=== PATIENT | female | born 1935 | race Two or more races ===

== ENCOUNTER 2020-07-17 11:10 | Inpatient (IN) | payer MEDICARE ==
[2020-07-17] MEDS ORDERED: NORMAL SALINE 1000 ML 1,000 ML IV ONE ×3 (11:58→13:29)
--- NOTE | 2020-07-17 12:52 | RADIOLOGY REPORT (SQ) ---
EXAM DESCRIPTION: CHEST SINGLE VIEW IMAGES COMPLETED DATE/TIME: 07/17/2020 12:45 pm REASON FOR STUDY: ams COMPARISON: None. EXAM PARAMETERS: NUMBER OF VIEWS: One view. TECHNIQUE: Single frontal radiographic view of the chest acquired. RADIATION DOSE: NA LIMITATIONS: None. FINDINGS: LUNGS AND PLEURA: No opacities, masses or pneumothorax. No pleural effusion. MEDIASTINUM AND HILAR STRUCTURES: No masses. Contour normal. HEART AND VASCULAR STRUCTURES: Heart normal in size. Normal vasculature. BONES: No acute findings. HARDWARE: None in the chest. OTHER: No other significant finding. IMPRESSION: NO ACUTE RADIOGRAPHIC FINDING IN THE CHEST. TECHNICAL DOCUMENTATION: JOB ID: [id number] 2010 [employer] system- All Rights Reserved Reading location - IP/workstation name: [email or web address]
[2020-07-17 12:56] LABS: APPEARANCE,URINE SLIGHTLY-CLOUDY; BILIRUBIN,URINE NEGATIVE (NEGATIVE); COLOR,URINE YELLOW; GLUCOSE, URINE NEGATIVE (NEGATIVE); KETONES,URINE NEGATIVE (NEGATIVE); LEUKOCYTE ESTERASE,URINE LARGE (NEGATIVE); NITRITE,URINE NEGATIVE (NEGATIVE); PROTEIN,URINE NEGATIVE (NEGATIVE); URINE SPECIFIC GRAVITY 1.017; UROBILINOGEN,URINE NEGATIVE mg/dL (<2.0)
[2020-07-17 13:01] LABS: ABSOLUTE MONOCYTES (AUTO) 0.6 10^3/uL (0.1-1.4); ABSOLUTE NEUT (AUTO) 10.9 10^3/uL (1.7-8.2); BASOPHILS % (AUTO) 0.2 % (0-2); EOSINOPHILS % (AUTO) 0.2 % (0-6); HEMATOCRIT 33.2 % (36.0-47.0); HEMOGLOBIN 11.2 g/dL (12.0-15.5); MEAN CORPUSCULAR HEMOGLOBIN 30.7 pg (27.0-33.4); MEAN CORPUSCULAR HGB CONC 33.7 g/dL (32.0-36.0); MEAN CORPUSCULAR VOLUME 91 fl (80-97); MONOCYTES % (AUTO) 4.9 % (3-13); PLATELET COUNT 228 10^3/uL (150-450); RED BLOOD COUNT 3.65 10^6/uL (3.72-5.28); RED CELL DISTRIBUTION WIDTH 16.2 % (11.5-14.0); SEGMENTED NEUTROPHILS % (AUTO) 86.7 % (42-78); TOTAL CELLS COUNTED % (AUTO) 100 %; WHITE BLOOD COUNT 12.6 10^3/uL (4.0-10.5)
[2020-07-17 13:19] LABS: ALBUMIN 2.8 g/dL (3.5-5.0); ALKALINE PHOSPHATASE 94 U/L (38-126); ASPARTATE AMINO TRANSFERASE 21 U/L (14-36); BILIRUBIN,DIRECT 0.3 mg/dL (0.0-0.4); BILIRUBIN,TOTAL 0.6 mg/dL (0.2-1.3); CALCIUM 10.9 mg/dL (8.4-10.2); CHLORIDE 123 mmol/L (98-107); CREATINE KINASE 157 U/L (30-135); GLUCOSE 186 mg/dL (75-110); POTASSIUM 4.6 mmol/L (3.6-5.0); TOTAL PROTEIN 5.6 g/dL (6.3-8.2)
[2020-07-17 13:21] LABS: ARTERIAL BLOOD BASE EXCESS -8.7 mmol/L; ARTERIAL BLOOD H2CO3 0.69 mmol/L (1.05-1.35); ARTERIAL BLOOD HCO3 14.2 mmol/L (20-24); ARTERIAL BLOOD O2 SATURATION 99.2 % (94-98); ARTERIAL BLOOD PCO2 22.8 mmHg (35-45); ARTERIAL BLOOD PH 7.41 (7.35-7.45); ARTERIAL BLOOD PO2 171.1 mmHg (80-100); ARTERIAL BLOOD TOTAL CO2 14.9 mmol/L (21-25)
--- NOTE | 2020-07-17 13:23 | ER Document Report ---
ED General - General Stated Complaint: BLOOD PRESSURE ISSUES Time Seen by Provider: 07/17/20 11:29 Primary Care Provider: MARCELINO SOLIS MD [Primary Care Provider] - Follow up as needed Mode of Arrival: Medic Information source: Emergency Med Personnel - [facility] Notes: Patient is brought in by EMS from an extended care facility. Patient was found with low blood pressure. Patient has a history apparently of acute renal failure. The low blood pressure was apparently noticed this morning. No known recent fevers. Patient does have a known diagnosis of a recent lumbar spine fr acture. No other known recent trauma. No known vomiting. Patient is currently nonverbal not able to contribute to history. History is obtained mainly from records as well as emergency medicine personnel. Patient has not had a recent cough or congestion. Paramedics were called primarily because of the low blood pressure according to the report. Past Medical History - General Information source: Emergency Med Personnel - Social History Smoking Status: Never Smoker - No known history of tobacco use Frequency of alcohol use: None Drug Abuse: None Family History: Reviewed & Not Pertinent Review of Systems - Review of Systems -: Yes ROS unobtainable due to patient's medical condition - Cannot obtain review of symptoms due to altered mental status Physical Exam - Vital signs Vitals: Temp 94.1 F L 07/17/20 11:11 Interpretation: Hypotensive, Other - Hypothermic - General General appearance: Lethargic In distress: Moderate - HEENT Head: Normocephalic, Atraumatic Eyes: Normal Mouth/Lips: Normal Mucous membranes: Dry - Respiratory Respiratory status: No respiratory distress Chest status: Nontender Breath sounds: Decreased air movement Chest palpation: Normal - Cardiovascular Rhythm: Regular Heart sounds: Normal auscultation Murmur: No - Abdominal Inspection: Normal Distension: No distension Bowel sounds: Normal Tenderness: Nontender Organomegaly: No organomegaly - Back Back: Normal, Nontender - Extremities General upper extremity: Normal inspection, Nontender, Normal color, Normal temperature General lower extremity: Normal inspection, Nontender, Normal color, Normal temperature - Neurological Cognition: Confused Orientation: Disoriented to person, Disoriented to place, Disoriented to time Luis Coma Scale Eye Opening: Spontaneous Luis Coma Scale Verbal: Confused [place] Coma Scale Motor: Obeys Commands [place] Coma Scale Total: 14 - Psychological Associated symptoms: Confused, Psychomotor depression - Skin Skin Temperature: Warm Skin Moisture: Dry Skin Color: Normal Course - Re-evaluation Re-evalutation: 07/17/20 13:38 Patient presents with altered mental status and low blood pressure from an outside facility. She obviously appears to be septic with hypothermia elevated white blood cell count and low blood pressure. Her blood pressure has responded well so far to fluids. She is currently on her fourth liter. She also has an elevated lactate and acute renal failure. She will be treated with antibiotics for the urinary tract infection and apparent sepsis. She does have a mildly elevated troponin as well. This appears to be some leak of troponin due to some demand ischemia. Patient is a DO NOT RESUSCITATE. I have updated the family. At this time I have spoke with the hospitalist will see the patient in cons ultation. - Vital Signs Vital signs: Temp Pulse Resp BP Pulse Ox 93.9 F L 24 H 84/62 L 100 07/17/20 12:33 07/17/20 12:33 07/17/20 12:33 07/17/20 12:33 - Laboratory Result Diagrams: 07/17/20 12:32 07/17/20 12:32 Lab Results Review: Critical Lab Results Reviewed Laboratory results interpreted by me: 07/17/20 07/17/20 07/17/20 12:05 12:32 12:32 WBC 12.6 H RBC 3.65 L Hgb 11.2 L Hct 33.2 L RDW 16.2 H Lymph % (Auto) 8.0 L Absolute Neuts (auto) 10.9 H Seg Neutrophils % 86.7 H Carbonic Acid ABG pCO2 ABG pO2 ABG HCO3 ABG Total CO2 ABG O2 Saturation Sodium 152.1 H Chloride 123 H Carbon Dioxide 9 L* D BUN 171 H Creatinine 5.60 H Est GFR ( Amer) 9 L Est GFR (MDRD) Non-Af 7 L Glucose 186 H Lactic Acid Calcium 10.9 H Creatine Kinase 157 H Total Protein 5.6 L Albumin 2.8 L Ur Leukocyte Esterase LARGE H 07/17/20 07/17/20 12:48 13:00 WBC RBC Hgb Hct RDW Lymph % (Auto) Absolute Neuts (auto) Seg Neutrophils % Carbonic Acid 0.69 L ABG pCO2 22.8 L ABG pO2 171.1 H ABG HCO3 14.2 L ABG Total CO2 14.9 L ABG O2 Saturation 99.2 H Sodium Chloride Carbon Dioxide BUN Creatinine Est GFR ( Amer) Est GFR (MDRD) Non-Af Glucose Lactic Acid 4.0 H Calcium Creatine Kinase Total Protein Albumin Ur Leukocyte Esterase - Diagnostic Test Radiology Studies Status: Radiology Report Reviewed Critical Care Note - Critical Care Note Total time excluding time spent on procedures (mins): 55 Comments: Approximate 55 minutes of critical care time were spent on this patient with sepsis, hypotension, urinary tract infection, altered mental status, and acute renal failure. Discharge - Discharge Clinical Impression: Sepsis Qualifiers: Sepsis type: sepsis due to unspecified organism Sepsis acute organ dysfunction status: with acute organ dysfunction Severe sepsis acute organ dysfunction type: acute renal failure Acute renal failure type: unspecified Severe sepsis shock status: with septic shock Qualified Code(s): A41.9 - Sepsis, unspecified organism; R65.21 - Severe sepsis with septic shock; N17.9 - Acute kidney failure, unspecified Condition: Critical Disposition: ADMITTED INPATIENT Admitting Provider: Ke (Hospitalist) Unit Admitted: IMCU Referrals: MARCELINO SOLIS MD [Primary Care Provider] - Follow up as needed
[2020-07-17 13:27] LABS: BLOOD UREA NITROGEN 171 mg/dL (7-20)
[2020-07-17 13:28] LABS: CARBON DIOXIDE 9 mmol/L (22-30)
[2020-07-17 13:29] LABS: ARTERIAL BLOOD FIO2 2L
[2020-07-17] MEDS ORDERED: CEFEPIME 2 GM/D5W RTU 2 GM/50 ML RTUPB IV ONE (13:29)
[2020-07-17 13:31] LABS: CREATINE KINASE MB 9.32 ng/mL (<4.55)
[2020-07-17 13:38] LABS: TROPONIN I 0.223 ng/mL
[2020-07-17 13:49] LABS: ANION GAP 20 (5-19)
[2020-07-17] MEDS ORDERED: PROMETHAZINE HCL INJ 25 MG/1 ML VIAL IV PRN (14:23)
[2020-07-17] MEDS ORDERED: MORPHINE SULFATE 10 MG/ML INJ IV PRN (14:26)
[2020-07-17] MEDS ORDERED: HALOPERIDOL LACTATE INJ 5 MG/1 ML VIAL IV PRN (14:26)
--- NOTE | 2020-07-17 14:31 | ADVANCED CARE ---
Attendance: : Norberto Madden Son: Herminio Madden [id number]: Melissa Madden Resuscitation Status: Comfort Measures Only Discussion: We discussed that patient is in septic shock with renal failure and evidence of cardiac strain. Family states that she has had a poor quality of life for the last 1-2 months and has been declining gradually. She has repeatedly told them that she does not want "extraordinary measures" to keep her alive and wants to maintain a high quality of life. Ever since going to SNF, she has become bedbound and dementia has progressed. Family is ready to transition to comfort measures at this time. They are coming in to be with her and understand that her time left is very limited. Time Spent: >30 minutes
[2020-07-17] MEDS: LORAZEPAM INJ 2 MG/1 ML VIAL IV PRN (16:00)
--- NOTE | 2020-07-17 17:32 | PDOC H&P ---
History of Present Illness Admission Date/PCP: 07/17/20 14:08 MARCELINO SOLIS MD Patient complains of: abnormal labs History of Present Illness: ERYN VILLARREAL is an 84 year old female with PMH of advanced dementia, HTN, HLD, CAD, CKD stage 3, generalized weakness and recent onset of falls who presents from [facility] due to elevated BUN/Cr found on routine labs today. In the ED, she was altered and unable to provide history. VS showed hypothermia, hypotension, tachypnea. Labs notable for leukocytosis, MIRTA on CKD with metabolic acidosis, lactic acidosis, and elevated troponin. ABG shows respiratory alkalosis. She had a large, firm bowel movement in the ED for which she had to be manually disimpacted. She is currently somnolent and minimally responsive. I spoke with her nurse at [place], who tells me that Mrs. Villarreal has been mostly bed-bound. She requires 2 person-assist with everything; she is not ambulatory. She has to be fed meals and has been mostly refusing to eat/drink during her stay there (07/11 to 07/17). She has been eating maximum 25% of her meals. She has been having labs checked regularly due to progressively worsening renal function. She had routine labs checked yesterday; they got the results today, showing much worse renal failure, so the decision was made to transfer her to [facility]. Goals of care and code status discussed with family via phone, and they wish to pursue comfort care measures only. Past Medical History Cardiac Medical History: Reports: Coronary Artery Disease, Hyperlipidema, Hypertension EENT Medical History: Reports: Ears - hard of hearing Endocrine Medical History: Reports: Hypothyroidism Renal/ Medical History: Reports: Chronic Kidney Disease Musculoskeltal Medical History: Reports: Arthritis - fall and recent spinal fracture (wears TLSO brace) Psychiatric Medical History: Reports: Dementia Past Surgical History Past Surgical History: Reports: None Social History Information Source: Relative, Transfer Record Lives with: Jail Smoking Status: Never Smoker - No known history of tobacco use Frequency of Alcohol Use: None Hx Recreational Drug Use: No Hx Prescription Drug Abuse: No - Advance Directive Resuscitation Status: Comfort Measures Only Surrogate healthcare decision maker:: Family History Family History: Reviewed & Not Pertinent Parental Family History Reviewed: Yes Children Family History Reviewed: Yes Sibling(s) Family History Reviewed.: Yes Medication/Allergy Allergies/Adverse Reactions: No Known Allergies Allergy (Verified 07/17/20 15:45) Review of Systems ROS unobtainable: Due to mental status Physical Exam Vital Signs: Temp Pulse Resp BP Pulse Ox 93.9 F L 24 H 84/62 L 100 07/17/20 12:33 07/17/20 12:33 07/17/20 12:33 07/17/20 12:33 Intake & Output 07/16/20 07/17/20 07/18/20 06:59 06:59 06:59 Intake Total 1999 Balance 1999 Weight 48.1 kg General appearance: PRESENT: no acute distress, disheveled Eye exam: ABSENT: scleral icterus Mouth exam: PRESENT: dry mucosa Throat exam: ABSENT: post pharyngeal erythema Neck exam: ABSENT: JVD Respiratory exam: PRESENT: clear to auscultation cinthya, unlabored Cardiovascular exam: PRESENT: RRR GI/Abdominal exam: PRESENT: normal bowel sounds, soft. ABSENT: distended, firm, guarding, rebound, rigid, tenderness Rectal exam: PRESENT: deferred Gentrourinary exam: PRESENT: indwelling catheter Extremities exam: ABSENT: pedal edema Neurological exam: PRESENT: altered Skin exam: ABSENT: jaundice Results Laboratory Results: 07/17/20 12:32 07/17/20 12:32 07/17/20 07/17/20 07/17/20 12:05 12:32 12:32 WBC 12.6 H RBC 3.65 L Hgb 11.2 L Hct 33.2 L MCV 91 MCH 30.7 MCHC 33.7 RDW 16.2 H Plt Count 228 Seg Neutrophils % 86.7 H Carbonic Acid HCO3/H2CO3 Ratio ABG pH ABG pCO2 ABG pO2 ABG HCO3 ABG O2 Saturation ABG Base Excess FiO2 Sodium 152.1 H Potassium 4.6 Chloride 123 H Carbon Dioxide 9 L* D Anion Gap 20 H BUN 171 H Creatinine 5.60 H Est GFR ( Amer) 9 L Glucose 186 H Lactic Acid Calcium 10.9 H Total Bilirubin 0.6 AST 21 Alkaline Phosphatase 94 Total Protein 5.6 L Albumin 2.8 L Urine Color YELLOW Urine Appearance SLIGHTLY-CLOUDY Urine pH 5.0 Ur Specific [place] 1.017 Urine Protein NEGATIVE Urine Glucose (UA) NEGATIVE Urine Ketones NEGATIVE Urine Blood NEGATIVE Urine Nitrite NEGATIVE Ur Leukocyte Esterase LARGE H Urine WBC (Auto) 62 Urine RBC (Auto) 9 07/17/20 07/17/20 12:48 13:00 WBC RBC Hgb Hct MCV MCH MCHC RDW Plt Count Seg Neutrophils % Carbonic Acid 0.69 L HCO3/H2CO3 Ratio 20:1 ABG pH 7.41 ABG pCO2 22.8 L ABG pO2 171.1 H ABG HCO3 14.2 L ABG O2 Saturation 99.2 H ABG Base Excess -8.7 FiO2 2L Sodium Potassium Chloride Carbon Dioxide Anion Gap BUN Creatinine Est GFR ( Amer) Glucose Lactic Acid 4.0 H Calcium Total Bilirubin AST Alkaline Phosphatase Total Protein Albumin Urine Color Urine Appearance Urine pH Ur Specific [place] Urine Protein Urine Glucose (UA) Urine Ketones Urine Blood Urine Nitrite Ur Leukocyte Esterase Urine WBC (Auto) Urine RBC (Auto) 07/17/20 07/17/20 12:32 12:32 Creatine Kinase 157 H CK-MB (CK-2) 9.32 H Troponin I 0.223 Impressions: Chest X-Ray 07/17/20 11:57 IMPRESSION: NO ACUTE RADIOGRAPHIC FINDING IN THE CHEST. Assessment and Plan - Plan Summary Summary: Mrs. ERYN VILLARREAL is an 84 year old female with PMH of advanced dementia, HTN, HLD, CAD, CKD stage 3, generalized weakness and recent onset of falls who presents from [facility] due to elevated BUN/Cr found on routine labs today. In the ED, she was altered and unable to provide history. VS showed hypothermia, hypotension, tachypnea. Labs notable for leukocytosis, MIRTA on CKD with metabolic acidosis, lactic acidosis, and elevated troponin. ABG shows respiratory alkalosis. She had a large, firm bowel movement in the ED for which she had to be manually disimpacted. She is currently somnolent and minimally responsive. I spoke with her nurse at [place], who tells me that Mrs. Villarreal has been mostly bed-bound. She requires 2 person-assist with everything; she is not ambulatory. She has to be fed meals and has been mostly refusing to eat/drink during her stay there (07/11 to 07/17). She has been eating maximum 25% of her meals. She has been having labs checked regularly due to progressively worsening renal function. She had routine labs checked yesterday; they got the results today, showing much worse renal failure, so the decision was made to transfer her to [facility]. She remains minimally responsive after several IVF boluses. She appears as though she has lost a lot of weight recently and she is quite dry on exam, compatible with history obtained from SNF and family. Goals of care and code status discussed with family via phone, and they wish to pursue comfort care measures only, which I think is appropriate. We will start Ativan, morphine, Haldol PRN. Pleasure feeds PRN. Bedrest. Case management consult to start planning for hospice services. Code Status: DNR/DNI - comfort measures only - Time Time Spent with patient: 35 or more minutes Anticipated Discharge Disposition: Hospice Center Anticipated Discharge Timeframe: within 48 hours
--- NOTE | 2020-07-17 17:49 | EKG REPORT ---
SEVERITY:- ABNORMAL ECG - PROBABLE SINUS RHYTHM, CAN OUT R/O A FLUTTER REC REPEAT EKG WITH FILTER RIGHT BUNDLE BRANCH BLOCK INFERIOR INJURY, PROBABLE EARLY ACUTE INFARCT : Confirmed by: Vadim Flowers 17-Jul-2020 17:48:49
[2020-07-18] MEDS: LORAZEPAM INJ 2 MG/1 ML VIAL IV PRN (03:28)
--- NOTE | 2020-07-18 14:07 | PDOC PROGRESS REPORT ---
Subjective Date:: 07/18/20 Subjective:: Patient made comfort care yesterday. Family reportedly traveling from out of town today to see patient today. Patient resting in bed. She appears comfortable. Discussed with PCT who is familiar with patient from yesterday, tells me that patient appears significantly more comfortable today than yesterday. Pt's hypothermic on rectal temp. As she is comfort measures only and appears comfortable will just cover her with warm blankets to be routinely changed for her comfort. Reason For Visit: SEPTIC SHOCK Physical Exam Vital Signs: Temp Pulse Resp BP Pulse Ox 94.5 F L 67 17 90/47 L 87 L 07/18/20 10:40 07/18/20 08:07 07/18/20 08:07 07/18/20 08:07 07/18/20 08:07 Intake & Output 07/17/20 07/18/20 07/19/20 06:59 06:59 06:59 Intake Total 2000 Output Total 450 Balance 1550 Weight 47 kg General appearance: PRESENT: no acute distress, thin Respiratory exam: PRESENT: clear to auscultation cinthya, unlabored Cardiovascular exam: PRESENT: RRR GI/Abdominal exam: PRESENT: soft. ABSENT: tenderness Gentrourinary exam: PRESENT: indwelling catheter Neurological exam: PRESENT: altered Skin exam: PRESENT: dry. ABSENT: jaundice Results Laboratory Results: 07/17/20 12:32 07/17/20 12:32 07/17/20 07/17/20 12:32 12:32 Creatine Kinase 157 H CK-MB (CK-2) 9.32 H Troponin I 0.223 Impressions: Chest X-Ray 07/17/20 11:57 IMPRESSION: NO ACUTE RADIOGRAPHIC FINDING IN THE CHEST. Assessment and Plan - Diagnosis (1) Comfort measures only status Is this a current diagnosis for this admission?: Yes - Plan Summary Summary: Mrs. ERYN VILLARREAL is an 84 year old female with PMH of advanced dementia, HTN, HLD, CAD, CKD stage 3, generalized weakness and recent onset of falls who presents from [facility] due to elevated BUN/Cr found on routine labs today. In the ED, she was altered and unable to provide history. VS showed hypothermia, hypotension, tachypnea. Labs notable for leukocytosis, MIRTA on CKD with metabolic acidosis, lactic acidosis, and elevated troponin. ABG shows respiratory alkalosis. She had a large, firm bowel movement in the ED for which she had to be manually disimpacted. She is currently somnolent and minimally responsive. I spoke with her nurse at [place], who tells me that Mrs. Villarreal has been mostly bed-bound. She requires 2 person-assist with everything; she is not ambulatory. She has to be fed meals and has been mostly refusing to eat/drink during her stay there (07/11 to 07/17). She has been eating maximum 25% of her meals. She has been having labs checked regularly due to progressively worsening renal function. She had routine labs checked yesterday; they got the results today, showing much worse renal failure, so the decision was made to transfer her to [facility]. She remains minimally responsive after several IVF boluses. She appears as though she has lost a lot of weight recently and she is quite dry on exam, compatible with history obtained from SNF and family. Goals of care and code status discussed with family via phone, and they wish to pursue comfort care measures only, which I think is appropriate. We will start Ativan, morphine, Haldol PRN. Pleasure feeds PRN. Bedrest. Case management consult to start planning for hospice services. Code Status: DNR/DNI - comfort measures only 07/18/2020: Patient appears comfortable. Continue Ativan, morphine, haldol prn. - MAR reviewed, patient last requiring Ativan at 0300, since has been comfortable, has required no further tx thus far. Continue pleasure feeds PRN. Order placed to dc planning for hospice services/options including inpatient hospice. - Time Time Spent with patient: Less than 15 minutes Medications reviewed and adjusted accordingly: Yes Anticipated Discharge Disposition: Hospice Center Anticipated Discharge Timeframe: within 24 hours
[2020-07-18 20:08] VITALS: BP 134/80
[2020-07-19] MEDS: LORAZEPAM INJ 2 MG/1 ML VIAL IV PRN (03:13)
--- NOTE | 2020-07-19 13:47 | PDOC DISCHARGE SUMMARY ---
Impression - Admit/DC Date/PCP Admission Date/Primary Care Provider: 07/17/20 14:08 MARCELINO SOLIS MD Discharge Date: 07/19/20 - Discharge Diagnosis (1) Comfort measures only status Is this a current diagnosis for this admission?: Yes (2) Sepsis Is this a current diagnosis for this admission?: Yes (3) Dehydration Is this a current diagnosis for this admission?: Yes (4) Flcdy-oq-ijfcrow kidney injury Is this a current diagnosis for this admission?: Yes (5) Dementia Is this a current diagnosis for this admission?: Yes (6) Hypertension Is this a current diagnosis for this admission?: Yes (7) Hyperlipidemia Is this a current diagnosis for this admission?: Yes (8) Coronary artery disease Is this a current diagnosis for this admission?: Yes - Assessment Summary: Mrs. ERYN VILLARREAL is an 84 year old female with PMH of advanced dementia, HTN, HLD, CAD, CKD stage 3, generalized weakness and recent onset of falls who presents from [facility] due to elevated BUN/Cr found on routine labs today. In the ED, she was altered and unable to provide history. VS showed hypothermia, hypotension, tachypnea. Labs notable for leukocytosis, MIRTA on CKD with metabolic acidosis, lactic acidosis, and elevated troponin. ABG shows respiratory alkalosis. She had a large, firm bowel movement in the ED for which she had to be manually disimpacted. She is currently somnolent and minimally responsive. I spoke with her nurse at [place], who tells me that Mrs. Villarreal has been mostly bed-bound. She requires 2 person-assist with everything; she is not ambulatory. She has to be fed meals and has been mostly refusing to eat/drink during her stay there (07/11 to 07/17). She has been eating maximum 25% of her meals. She has been having labs checked regularly due to progressively worsening renal function. She had routine labs checked yesterday; they got the results today, showing much worse renal failure, so the decision was made to transfer her to [facility]. She remains minimally responsive after several IVF boluses. She appears as though she has lost a lot of weight recently and she is quite dry on exam, compatible with history obtained from SNF and family. Goals of care and code status discussed with family via phone, and they wish to pursue comfort care measures only, which I think is appropriate. We will start Ativan, morphine, Haldol PRN. Pleasure feeds PRN. Bedrest. Case management consult to start planning for hospice services. Code Status: DNR/DNI - comfort measures only 07/18/2020: Patient appears comfortable. Continue Ativan, morphine, haldol prn. - MAR reviewed, patient last requiring Ativan at 0300, since has been comfortable, has required no further tx thus far. Continue pleasure feeds PRN. Order placed to ca planning for hospice services/options including inpatient hospice. - Additional Information Resuscitation Status: Comfort Measures Only Discharge Diet: As Tolerated Discharge Activity: Bedrest Referrals: [facility] [Outside] History of Present Illiness History of Present Illness: ERYN VILLARREAL is a 84 year old female with PMH of advanced dementia, HTN, HLD, CAD, CKD stage 3, generalized weakness and recent onset of falls who presents from [facility] due to elevated BUN/Cr found on routine labs today. In the ED, she was altered and unable to provide history. VS showed hypothermia, hypotension, tachypnea. Labs notable for leukocytosis, MIRTA on CKD with metabolic acidosis, lactic acidosis, and elevated troponin. ABG shows respiratory alkalosis. She had a large, firm bowel movement in the ED for which she had to be manually disimpacted. She is currently somnolent and minimally responsive. I spoke with her nurse at [place], who tells me that Mrs. Villarreal has been mostly bed-bound. She requires 2 person-assist with everything; she is not ambulatory. She has to be fed meals and has been mostly refusing to eat/drink during her stay there (07/11 to 07/17). She has been eating maximum 25% of her meals. She has been having labs checked regularly due to progressively worsening renal function. She had routine labs checked yesterday; they got the results today, showing much worse renal failure, so the decision was made to transfer her to [facility]. Goals of care and code status discussed with family via phone, and they wish to pursue comfort care measures only. Hospital Course Hospital Course: She has been managed expectantly here. Decision was made by the family to transfer her to hospice. Case management helped her to facilitate this to happen. She will be transferred to hospice this afternoon. Physical Exam Vital Signs: Temp Pulse Resp BP Pulse Ox 94.5 F L 70 15 134/80 H 98 07/19/20 07:55 07/18/20 20:07 07/18/20 20:07 07/18/20 20:07 07/18/20 20:07 Intake & Output 07/18/20 07/19/20 07/20/20 06:59 06:59 06:59 Intake Total 2000 0 Output Total 450 700 0 Balance 1550 -700 0 Weight 47 kg 47 kg General appearance: PRESENT: no acute distress, thin Respiratory exam: PRESENT: clear to auscultation cinthya, unlabored Cardiovascular exam: PRESENT: RRR GI/Abdominal exam: PRESENT: soft. ABSENT: tenderness Gentrourinary exam: PRESENT: indwelling catheter Neurological exam: PRESENT: altered Skin exam: PRESENT: dry. ABSENT: jaundice Results Laboratory Results: WBC 12.6 10^3/uL (4.0-10.5) H 07/17/20 12:32 RBC 3.65 10^6/uL (3.72-5.28) L 07/17/20 12:32 Hgb 11.2 g/dL (12.0-15.5) L 07/17/20 12:32 Hct 33.2 % (36.0-47.0) L 07/17/20 12:32 MCV 91 fl (80-97) 07/17/20 12:32 MCH 30.7 pg (27.0-33.4) 07/17/20 12:32 MCHC 33.7 g/dL (32.0-36.0) 07/17/20 12:32 RDW 16.2 % (11.5-14.0) H 07/17/20 12:32 Plt Count 228 10^3/uL (150-450) 07/17/20 12:32 Lymph % (Auto) 8.0 % (13-45) L 07/17/20 12:32 Curry % (Auto) 4.9 % (3-13) 07/17/20 12:32 Eos % (Auto) 0.2 % (0-6) 07/17/20 12:32 Baso % (Auto) 0.2 % (0-2) 07/17/20 12:32 Absolute Neuts (auto) 10.9 10^3/uL (1.7-8.2) H 07/17/20 12:32 Absolute Lymphs (auto) 1.0 10^3/uL (0.5-4.7) 07/17/20 12:32 Absolute Monos (auto) 0.6 10^3/uL (0.1-1.4) 07/17/20 12:32 Absolute Eos (auto) 0.0 10^3/uL (0.0-0.6) 07/17/20 12:32 Absolute Basos (auto) 0.0 10^3/uL (0.0-0.2) 07/17/20 12:32 Seg Neutrophils % 86.7 % (42-78) H 07/17/20 12:32 Carbonic Acid 0.69 mmol/L (1.05-1.35) L 07/17/20 13:00 HCO3/H2CO3 Ratio 20:1 07/17/20 13:00 ABG pH 7.41 (7.35-7.45) 07/17/20 13:00 ABG pCO2 22.8 mmHg (35-45) L 07/17/20 13:00 ABG pO2 171.1 mmHg (80-100) H 07/17/20 13:00 ABG HCO3 14.2 mmol/L (20-24) L 07/17/20 13:00 ABG Total CO2 14.9 mmol/L (21-25) L 07/17/20 13:00 ABG O2 Saturation 99.2 % (94-98) H 07/17/20 13:00 ABG Base Excess -8.7 mmol/L 07/17/20 13:00 FiO2 2L 07/17/20 13:00 Sodium 152.1 mmol/L (137-145) H 07/17/20 12:32 Potassium 4.6 mmol/L (3.6-5.0) 07/17/20 12:32 Chloride 123 mmol/L (98-107) H 07/17/20 12:32 Carbon Dioxide 9 mmol/L (22-30) L* D 07/17/20 12:32 Anion Gap 20 (5-19) H 07/17/20 12:32 BUN 171 mg/dL (7-20) H 07/17/20 12:32 Creatinine 5.60 mg/dL (0.52-1.25) H 07/17/20 12:32 Est GFR ( Amer) 9 (>60) L 07/17/20 12:32 Est GFR (MDRD) Non-Af 7 (>60) L 07/17/20 12:32 Glucose 186 mg/dL (75-110) H 07/17/20 12:32 Lactic Acid 4.0 mmol/L (0.7-2.1) H 07/17/20 12:48 Calcium 10.9 mg/dL (8.4-10.2) H 07/17/20 12:32 Total Bilirubin 0.6 mg/dL (0.2-1.3) 07/17/20 12:32 Direct Bilirubin 0.3 mg/dL (0.0-0.4) 07/17/20 12:32 Neonat Total Bilirubin Not Reportable 07/17/20 12:32 Neonat Direct Bilirubin Not Reportable 07/17/20 12:32 Neonat Indirect Bili Not Reportable 07/17/20 12:32 AST 21 U/L (14-36) 07/17/20 12:32 ALT 20 U/L (<35) 07/17/20 12:32 Alkaline Phosphatase 94 U/L (38-126) 07/17/20 12:32 Creatine Kinase 157 U/L (30-135) H 07/17/20 12:32 CK-MB (CK-2) 9.32 ng/mL (<4.55) H 07/17/20 12:32 Troponin I 0.223 ng/mL 07/17/20 12:32 Total Protein 5.6 g/dL (6.3-8.2) L 07/17/20 12:32 Albumin 2.8 g/dL (3.5-5.0) L 07/17/20 12:32 Urine Color YELLOW 07/17/20 12:05 Urine Appearance SLIGHTLY-CLOUDY 07/17/20 12:05 Urine pH 5.0 (5.0-9.0) 07/17/20 12:05 Ur Specific [place] 1.017 07/17/20 12:05 Urine Protein NEGATIVE mg/dL (NEGATIVE) 07/17/20 12:05 Urine Glucose (UA) NEGATIVE mg/dL (NEGATIVE) 07/17/20 12:05 Urine Ketones NEGATIVE mg/dL (NEGATIVE) 07/17/20 12:05 Urine Blood NEGATIVE (NEGATIVE) 07/17/20 12:05 Urine Nitrite NEGATIVE (NEGATIVE) 07/17/20 12:05 Urine Bilirubin NEGATIVE (NEGATIVE) 07/17/20 12:05 Urine Urobilinogen NEGATIVE mg/dL (<2.0) 07/17/20 12:05 Ur Leukocyte Esterase LARGE (NEGATIVE) H 07/17/20 12:05 Urine WBC (Auto) 62 /HPF 07/17/20 12:05 Urine RBC (Auto) 9 /HPF 07/17/20 12:05 U Hyaline Cast (Auto) 2 /LPF 07/17/20 12:05 Squamous Epi Cells Auto 2 /HPF 07/17/20 12:05 Urine Mucus (Auto) RARE /LPF 07/17/20 12:05 Urine Ascorbic Acid NEGATIVE (NEGATIVE) 07/17/20 12:05 07/17/20 12:32 CK-MB (CK-2) 9.32 H Troponin I 0.223 Impressions: Chest X-Ray 07/17/20 11:57 IMPRESSION: NO ACUTE RADIOGRAPHIC FINDING IN THE CHEST. Plan Time Spent: Greater than 30 Minutes Stroke Is this a Stroke Patient?: No Acute Heart Failure Is this a Heart Failure Patient?: No
== END 2020-07-19 15:40 | disposition hospice, home (50) | DRG 640 ==
LOC: ER 11:10 → EH 14:08 → 4W 15:50
PROVIDERS: ADMIT Hospitalist; ATTEND Family Medicine
DX: E86.0 Dehydration (principal); R57.1 Hypovolemic shock; N17.9 Acute kidney failure, unspecified; E87.2 Acidosis; I95.9 Hypotension, unspecified; Z66 Do not resuscitate; F03.90 Unspecified dementia, unspecified severity, without behavioral disturbance, psychotic disturbance, mood disturbance, and anxiety; E03.9 Hypothyroidism, unspecified; E78.5 Hyperlipidemia, unspecified; I25.10 Atherosclerotic heart disease of native coronary artery without angina pectoris; I12.9 Hypertensive chronic kidney disease with stage 1 through stage 4 chronic kidney disease, or unspecified chronic kidney disease; N18.30 Chronic kidney disease, stage 3 unspecified; R77.8 Other specified abnormalities of plasma proteins; Z74.01 Bed confinement status; Z51.5 Encounter for palliative care; Z91.81 History of falling
CPT/HCPCS: 36415; 71045; 80053; 81001; 82550; 82553; 82803; 83605; 84484; 85025; 87040; 87086; 93005; 93010; 96360; 99285; J2060; J7030